=== PATIENT | male | born 1985 | race African-American/Black ===

== ENCOUNTER 2016-08-02 03:28 | Emergency (ER) | payer OTHER ==
[2016-08-02 04:38] LABS: BASO # 0.1 K/mm3 (0.0-0.2); BASO % 1.8 % (0.0-1.0); EOS # 0.1 K/mm3 (0.0-0.50); EOS % 1.4 % (0.0-3.0); LARGE UNSTAINED CELL # 0.1 K/mm3 (0.0-0.4); LARGE UNSTAINED CELL % 3.6 % (0.0-4.0); LYMPH # 1.4 K/mm3 (1.5-6.5); LYMPH % 32.1 % (24.0-44.0); MEAN CORPUSCULAR HEMOGLOBIN 32.2 pg (27.0-33.0); MEAN CORPUSCULAR HGB CONC 33.2 g/dl (32.0-36.5); MONO # 0.3 K/mm3 (0.0-0.8); MONO % 6.8 % (0.0-5.0); NEUTROPHILS # 2.2 K/mm3 (1.8-7.7); NEUTROPHILS % 54.3 % (36.0-66.0); PLATELET COUNT, AUTOMATED 212 k/mm3 (150-450); RED CELL DISTRIBUTION WIDTH 12.9 % (11.5-14.5)
[2016-08-02 04:50] LABS: ALBUMIN 3.7 GM/DL (3.2-5.2); ALKALINE PHOSPHATASE 83 U/L (45-117); ALT/SGPT 24 U/L (12-78); AMYLASE 93 U/L (25-115); ANION GAP 8 MEQ/L (8-16); AST/SGOT 8 U/L (15-37); BILIRUBIN,DIRECT 0.1 MG/DL (0.0-0.2); BILIRUBIN,TOTAL 0.6 MG/DL (0.2-1.0); BLOOD UREA NITROGEN 7 MG/DL (7-18); CARBON DIOXIDE LEVEL 30 MEQ/L (21-32); CHLORIDE LEVEL 105 MEQ/L (98-107); CREATININE FOR GFR 0.86 MG/DL (0.70-1.30); GLOMERULAR FILTRATION RATE > 60.0 (>60); GLUCOSE, FASTING 89 MG/DL (70-105); POTASSIUM SERUM 3.5 MEQ/L (3.5-5.1); SODIUM LEVEL 143 MEQ/L (136-145); TOTAL PROTEIN 7.4 GM/DL (6.4-8.2)
--- NOTE | 2016-08-02 06:27 | EDDOCDS ---
Physician Documentation [facility] Name: Regis Frank Age: 31 yrs Sex: Male : 1985 Arrival Date: 08/02/2016 Time: 03:28 Bed 8 Private MD: Disposition: 08/02/16 06:17 Discharged to Home/Self Care. Impression: Left sided colitis with rectal bleeding. - Condition is Stable. - Medication Reconciliation, Local Pharmacy Hours form. - Follow up: Dusty Thrasher; When: Call to arrange an appointment; Reason: Recheck today's complaints. - Problem is an ongoing problem. - Symptoms have improved. Historical: - Allergies: No known drug Allergies; - Home Meds: 1. none - PMHx: Seasonal Allergies; - PSHx: Tonsillectomy; - Social history: Smoking status: Patient states was never smoker of tobacco. No barriers to communication noted, The patient speaks fluent Nepali, Speaks appropriately for age. - Family history: Not pertinent. - : The pt / caregiver states he / she is not on anticoagulants. Home medication list is obtained from the patient. - Exposure Risk Screening:: None identified. Vital Signs: 08/02 03:37 BP 123 / 75; Pulse 51; Resp 16; Temp 98.3(TE); Pulse Ox 97% on R/A; Weight 79.38 kg / cz 175 lbs; Height 6 ft. 1 in. (185.42 cm); 06:20 BP 119 / 67; Pulse 55; Resp 18; Temp 99.3(TE); Pulse Ox 99% on R/A; Pain 0/10; dannielle 03:37 Body Mass Index 23.09 (79.38 kg, 185.42 cm) cz MDM: 04:02 Undress patient appropriately for examination ordered. jul 04:02 IV Saline Lock ordered. jul 04:03 Amylase Ordered. EDMS 04:03 Basic Metabolic Profile Ordered. EDMS 04:03 CBC with Diff Ordered. EDMS 04:03 Lipase Ordered. EDMS 04:03 Liver Profile Ordered. EDMS 04:03 Type & Screen Ordered. EDMS 04:03 NOTHING BY MOUTH+DIET ordered. EDMS 06:11 CBC with Diff Reviewed. cs11 06:11 Liver Profile Reviewed. cs11 06:11 Amylase Reviewed. cs11 06:11 Basic Metabolic Profile Reviewed. cs11 06:11 Lipase Reviewed. cs11 06:11 Type & Screen Reviewed. cs11 Signatures: Dispatcher [employer] Jaylin Wiggins RN Gilbert Ochoa RN Noam Gomes DO DO [facility] Rosetta CarrascoRN RN ko2 MTDD
--- NOTE | 2016-08-02 06:27 | EDDOCDS ---
Nurse's Notes [facility] Name: Regis Frank Age: 31 yrs Sex: Male : 1985 Arrival Date: 08/02/2016 Time: 03:28 Bed 8 Private MD: Diagnosis: Left sided colitis with rectal bleeding Presentation: 08/02 03:35 Presenting complaint: Patient states: had a bowel movement last night around 1900 and cz passed blood with movement turning bowl water red pt denies history of hemorrhoids.pt states was not a constipated stool. Adult Sepsis Screening: The patient does not have new or worsening altered mentation. Patient's respiratory rate is less than 22. Systolic blood pressure is greater than 100. Patient has a qSOFA score of 0- Negative Sepsis Screen. Suicide/Homicide risk assessment- the patient denies having any suicidal and/or homicidal ideations and does not present with any other emotional, behavioral or mental health complaints. 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 Transition of care: patient was not received from another setting of care. 03:35 Acuity: DAVID Level 3 cz 03:35 Method Of Arrival: Walkin/Carried/Asstd cz Triage Assessment: 03:37 General: Appears in no apparent distress. Pain: Denies pain. HIV screening NA for this cz visit Offered previously. Historical: - Allergies: No known drug Allergies; - Home Meds: 1. none - PMHx: Seasonal Allergies; - PSHx: Tonsillectomy; - Social history: Smoking status: Patient states was never smoker of tobacco. No barriers to communication noted, The patient speaks fluent Moroccan, Speaks appropriately for age. - Family history: Not pertinent. - : The pt / caregiver states he / she is not on anticoagulants. Home medication list is obtained from the patient. - Exposure Risk Screening:: None identified. Screenin:15 Screening information is obtained from the patient. Fall risk: No risks identified. ko2 Assistance ADL's: requires no assistance with activities of daily living. Abuse/DV Screen: The patient / caregiver reports he/she is: not in a situation that causes fear, pain or injury. Nutritional screening: No deficits noted. Advance Directives: Currently, there is no health care proxy. There is no active DNR order. There is no living will. There is no Power of Shop Laborer. home support is adequate. Assessment: 03:45 General: Appears in no apparent distress, Behavior is appropriate for age, cooperative. ko2 Pain: Denies pain. Neurological: Level of Consciousness is awake, alert. Respiratory: Airway is patent Respiratory effort is even, unlabored. GI: Abdomen is non- distended Reports bloody stools only when having a bowel movement. Derm: Skin is normal. 05:00 General: Appears in no apparent distress, Behavior is appropriate for age, cooperative. ko2 Pain: Denies pain. Neurological: Level of Consciousness is awake, alert. Respiratory: Airway is patent Respiratory effort is even, unlabored. Derm: Skin is normal. 06:16 General: Appears in no apparent distress, Behavior is appropriate for age, cooperative. ko2 Pain: Denies pain. Neurological: Level of Consciousness is awake, alert. Respiratory: Airway is patent Respiratory effort is even, unlabored. Derm: Skin is normal. Vital Signs: 03:37 BP 123 / 75; Pulse 51; Resp 16; Temp 98.3(TE); Pulse Ox 97% on R/A; Weight 79.38 kg; cz Height 6 ft. 1 in. (185.42 cm); 06:20 BP 119 / 67; Pulse 55; Resp 18; Temp 99.3(TE); Pulse Ox 99% on R/A; Pain 0/10; dannielle 03:37 Body Mass Index 23.09 (79.38 kg, 185.42 cm) Vitals: 03:37 Log In Time: August 02, 2016 at 03:28. ED Course: 03:29 Patient visited by Tiffani Storey. [facility] 03:29 Patient moved to Waiting [facility] 03:31 Patient moved to Triage 1 cz 03:36 Triage Initiated cz 03:38 Rosetta Carrasco,RN is Primary Nurse. cz 03:38 Patient moved to 8 cz 04:29 Patient visited by Rosetta Carrasco,ALFONSO. ko2 04:29 Inserted saline lock: 20 gauge in right antecubital area and blood collected. The ko2 patient tolerated the procedure well. 04:30 The patient / caregiver is instructed regarding the plan of care and ED course. ko2 04:30 Amylase Sent. ko2 04:30 Basic Metabolic Profile Sent. ko2 04:30 CBC with Diff Sent. ko2 04:30 Lipase Sent. ko2 04:30 Liver Profile Sent. ko2 04:30 Type & Screen Sent. ko2 05:22 Patient visited by Rosetta Carrasco RN. ko2 05:55 Noam Granados DO is Attending Physician. cs11 05:55 Patient visited by Noam Granados DO. cs11 06:14 Dusty Thrasher is Referral Physician. cs11 06:20 Patient visited by Ladonna Bertrand PCA. dannielle 06:24 Discontinued lock intact, bleeding controlled, pressure dressing applied, No ko2 redness/swelling at site. No procedures done that require assistance. Order Results: Lab Order: Amylase; SPEC'M 08/02/16 04:27 Test: AMYLASE; Value: 93; Range: 25-115; Units: U/L; Status: F Lab Order: Basic Metabolic Profile; SPEC'M 08/02/16 04:27 Test: GLUCOSE, FASTING; Value: 89; Range: 70-105; Units: MG/DL; Status: F Test: BLOOD UREA NITROGEN; Value: 7; Range: 7-18; Units: MG/DL; Status: F Test: CREATININE FOR GFR; Value: 0.86; Range: 0.70-1.30; Units: MG/DL; Status: F Test: GLOMERULAR FILTRATION RATE; Value: > 60.0; Range: >60; Status: F Test: SODIUM LEVEL; Value: 143; Range: 136-145; Units: MEQ/L; Status: F Test: POTASSIUM SERUM; Value: 3.5; Range: 3.5-5.1; Units: MEQ/L; Status: F Test: CHLORIDE LEVEL; Value: 105; Range: 98-107; Units: MEQ/L; Status: F Test: CARBON DIOXIDE LEVEL; Value: 30; Range: 21-32; Units: MEQ/L; Status: F Test: ANION GAP; Value: 8; Range: 8-16; Units: MEQ/L; Status: F Test: CALCIUM LEVEL; Value: 9.0; Range: 8.5-10.1; Units: MG/DL; Status: F Test Note: ; Units are mL/min/1.73 m2 Chronic Kidney Disease Staging per NKF: Stage I & II GFR >=60 Normal to Mildly Decreased Stage III GFR 30-59 Moderately Decreased Stage IV GFR 15-29 Severely Decreased Stage V GFR <15 Very Little GFR Left 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 Lab Order: CBC with Diff; SPEC'M 08/02/16 04:27 Test: WHITE BLOOD COUNT; Value: 4.0; Range: 4.0-10.0; Units: K/mm3; Status: F Test: RED BLOOD COUNT; Value: 4.93; Range: 4.30-6.10; Units: M/mm3; Status: F Test: HEMOGLOBIN; Value: 15.9; Range: 14.0-18.0; Units: g/dl; Status: F Test: HEMATOCRIT; Value: 47.8; Range: 42.0-52.0; Units: %; Status: F Test: MEAN CORPUSCULAR VOLUME; Value: 97.0; Range: 80.0-96.0; Abnormal: Above high normal; Units: fl; Status: F Test: MEAN CORPUSCULAR HEMOGLOBIN; Value: 32.2; Range: 27.0-33.0; Units: pg; Status: F Test: MEAN CORPUSCULAR HGB CONC; Value: 33.2; Range: 32.0-36.5; Units: g/dl; Status: F Test: RED CELL DISTRIBUTION WIDTH; Value: 12.9; Range: 11.5-14.5; Units: %; Status: F Test: PLATELET COUNT, AUTOMATED; Value: 212; Range: 150-450; Units: k/mm3; Status: F Test: NEUTROPHILS %; Value: 54.3; Range: 36.0-66.0; Units: %; Status: F Test: LYMPH %; Value: 32.1; Range: 24.0-44.0; Units: %; Status: F Test: MONO %; Value: 6.8; Range: 0.0-5.0; Abnormal: Above high normal; Units: %; Status: F Test: EOS %; Value: 1.4; Range: 0.0-3.0; Units: %; Status: F Test: BASO %; Value: 1.8; Range: 0.0-1.0; Abnormal: Above high normal; Units: %; Status: F Test: LARGE UNSTAINED CELL %; Value: 3.6; Range: 0.0-4.0; Units: %; Status: F Test: NEUTROPHILS #; Value: 2.2; Range: 1.8-7.7; Units: K/mm3; Status: F Test: LYMPH #; Value: 1.4; Range: 1.5-6.5; Abnormal: Below low normal; Units: K/mm3; Status: F Test: MONO #; Value: 0.3; Range: 0.0-0.8; Units: K/mm3; Status: F Test: EOS #; Value: 0.1; Range: 0.0-0.50; Units: K/mm3; Status: F Test: BASO #; Value: 0.1; Range: 0.0-0.2; Units: K/mm3; Status: F Test: LARGE UNSTAINED CELL #; Value: 0.1; Range: 0.0-0.4; Units: K/mm3; Status: F Lab Order: Lipase; [facility] 08/02/16 04:27 Test: LIPASE; Value: 85; Range: 73-393; Units: U/L; Status: F Lab Order: Liver Profile; [facility] 08/02/16 04:27 Test: AST/SGOT; Value: 8; Range: 15-37; Abnormal: Below low normal; Units: U/L; Status: F Test: ALT/SGPT; Value: 24; Range: 12-78; Units: U/L; Status: F Test: ALKALINE PHOSPHATASE; Value: 83; Range: 45-117; Units: U/L; Status: F Test: BILIRUBIN,TOTAL; Value: 0.6; Range: 0.2-1.0; Units: MG/DL; Status: F Test: BILIRUBIN,DIRECT; Value: 0.1; Range: 0.0-0.2; Units: MG/DL; Status: F Test: TOTAL PROTEIN; Value: 7.4; Range: 6.4-8.2; Units: GM/DL; Status: F Test: ALBUMIN; Value: 3.7; Range: 3.2-5.2; Units: GM/DL; Status: F Test: ALBUMIN/GLOBULIN RATIO; Value: 1.00; Range: 1.00-1.93; Status: F Lab Order: Type & Screen; [facility] 08/02/16 04:27 Test: BLOOD TYPE; Value: O POS; Status: F Test: AB SCREEN (INDIRECT MARY)GEL; Value: NEGATIVE; Status: F Outcome: 06:17 Discharge ordered by Provider. cs11 06:24 Discharge Assessment: Patient awake, alert and oriented x 3. No cognitive and/or ko2 functional deficits noted. Patient verbalized understanding of disposition instructions. patient administered narcotics - no. The following High Risk Discharge criteria are identified: None. Discharged to home ambulatory. Condition: stable. Discharge instructions given to patient, Instructed on discharge instructions, follow up and referral plans. Demonstrated understanding of instructions, Pt was receptive of discharge instructions/ teaching. No special radiology studies were completed. Property sent home with patient. 06:25 Patient left the ED. ko2 Signatures: Gilbert Valdivia, RN RN Ladonna Gordon, Noam Colunga DO DO cs11 Rosetta Carrasco RN RN ko2 Tiffani Storey MTDD
--- NOTE | 2016-08-04 07:27 | EDDOCDS ---
Physician Documentation [facility] Name: Regis Frank Age: 31 yrs Sex: Male : 1985 Arrival Date: 08/02/2016 Time: 03:28 Bed 8 Private MD: Disposition: 08/02/16 06:17 Discharged to Home/Self Care. Impression: Left sided colitis with rectal bleeding. - Condition is Stable. - Medication Reconciliation, Local Pharmacy Hours form. - Follow up: Dusty Thrasher; When: Call to arrange an appointment; Reason: Recheck today's complaints. - Problem is an ongoing problem. - Symptoms have improved. Historical: - Allergies: No known drug Allergies; - Home Meds: 1. none - PMHx: Seasonal Allergies; - PSHx: Tonsillectomy; - Social history: Smoking status: Patient states was never smoker of tobacco. No barriers to communication noted, The patient speaks fluent Arabic, Speaks appropriately for age. - Family history: Not pertinent. - : The pt / caregiver states he / she is not on anticoagulants. Home medication list is obtained from the patient. - Exposure Risk Screening:: None identified. Vital Signs: 08/02 03:37 BP 123 / 75; Pulse 51; Resp 16; Temp 98.3(TE); Pulse Ox 97% on R/A; Weight 79.38 kg / cz 175 lbs; Height 6 ft. 1 in. (185.42 cm); 06:20 BP 119 / 67; Pulse 55; Resp 18; Temp 99.3(TE); Pulse Ox 99% on R/A; Pain 0/10; dannielle 03:37 Body Mass Index 23.09 (79.38 kg, 185.42 cm) cz MDM: 04:02 Undress patient appropriately for examination ordered. jul 04:02 IV Saline Lock ordered. jul 04:03 Amylase Ordered. EDMS 04:03 Basic Metabolic Profile Ordered. EDMS 04:03 CBC with Diff Ordered. EDMS 04:03 Lipase Ordered. EDMS 04:03 Liver Profile Ordered. EDMS 04:03 Type & Screen Ordered. EDMS 04:03 NOTHING BY MOUTH+DIET ordered. EDMS 06:11 CBC with Diff Reviewed. cs11 06:11 Liver Profile Reviewed. cs11 06:11 Amylase Reviewed. cs11 06:11 Basic Metabolic Profile Reviewed. cs11 06:11 Lipase Reviewed. cs11 06:11 Type & Screen Reviewed. [facility] 06:39 [facility] Payment Agreement was scanned into [employer] and attached to record. [facility] :39 Financial registration complete. [facility] :02 T-Sheet-- Draft Copy was scanned into [employer] and attached to record. klr Signatures: Dispatcher [employer] Jaylin Wiggins RN RN jan Zecher, Calvin, RN RN cz Schiff, Craig, DO DO [facility] Rosetta Carrasco RN RN ko2 Beck, Gabriela Addie Goodson The chart was reviewed and I authenticate all verbal orders and agree with the evaluation and treatment provided.Attachments: 06:39 [facility] Payment Agreement [facility] :02 T-Sheet-- Draft Copy klr Chart Complete MTDD
--- NOTE | 2016-08-04 07:27 | EDDOCDS ---
Physician Documentation [facility] Name: Regis Frank Age: 31 yrs Sex: Male : 1985 Arrival Date: 08/02/2016 Time: 03:28 Bed 8 Private MD: Disposition: 08/02/16 06:17 Discharged to Home/Self Care. Impression: Left sided colitis with rectal bleeding. - Condition is Stable. - Medication Reconciliation, Local Pharmacy Hours form. - Follow up: Dusty Thrasher; When: Call to arrange an appointment; Reason: Recheck today's complaints. - Problem is an ongoing problem. - Symptoms have improved. Historical: - Allergies: No known drug Allergies; - Home Meds: 1. none - PMHx: Seasonal Allergies; - PSHx: Tonsillectomy; - Social history: Smoking status: Patient states was never smoker of tobacco. No barriers to communication noted, The patient speaks fluent Croatian, Speaks appropriately for age. - Family history: Not pertinent. - : The pt / caregiver states he / she is not on anticoagulants. Home medication list is obtained from the patient. - Exposure Risk Screening:: None identified. Vital Signs: 08/02 03:37 BP 123 / 75; Pulse 51; Resp 16; Temp 98.3(TE); Pulse Ox 97% on R/A; Weight 79.38 kg / cz 175 lbs; Height 6 ft. 1 in. (185.42 cm); 06:20 BP 119 / 67; Pulse 55; Resp 18; Temp 99.3(TE); Pulse Ox 99% on R/A; Pain 0/10; dannielle 03:37 Body Mass Index 23.09 (79.38 kg, 185.42 cm) cz MDM: 04:02 Undress patient appropriately for examination ordered. jul 04:02 IV Saline Lock ordered. jul 04:03 Amylase Ordered. EDMS 04:03 Basic Metabolic Profile Ordered. EDMS 04:03 CBC with Diff Ordered. EDMS 04:03 Lipase Ordered. EDMS 04:03 Liver Profile Ordered. EDMS 04:03 Type & Screen Ordered. EDMS 04:03 NOTHING BY MOUTH+DIET ordered. EDMS 06:11 CBC with Diff Reviewed. cs11 06:11 Liver Profile Reviewed. cs11 06:11 Amylase Reviewed. cs11 06:11 Basic Metabolic Profile Reviewed. cs11 06:11 Lipase Reviewed. cs11 06:11 Type & Screen Reviewed. [facility] 06:39 [facility] Payment Agreement was scanned into [employer] and attached to record. [facility] :39 Financial registration complete. [facility] :02 T-Sheet-- Draft Copy was scanned into [employer] and attached to record. klr Signatures: Dispatcher [employer] Jaylin Wiggins RN RN jan Zecher, Calvin, RN RN cz Schiff, Craig, DO DO [facility] Rosetta Carrasco RN RN ko2 Beck, Gabriela Addie Goodson The chart was reviewed and I authenticate all verbal orders and agree with the evaluation and treatment provided.Attachments: 06:39 [facility] Payment Agreement [facility] :02 T-Sheet-- Draft Copy klr Chart Complete MTDD
--- NOTE | 2016-08-04 07:27 | EDDOCDS ---
Nurse's Notes [facility] Name: Regis Frank Age: 31 yrs Sex: Male : 1985 Arrival Date: 08/02/2016 Time: 03:28 Bed 8 Private MD: Diagnosis: Left sided colitis with rectal bleeding Presentation: 08/02 03:35 Presenting complaint: Patient states: had a bowel movement last night around 1900 and cz passed blood with movement turning bowl water red pt denies history of hemorrhoids.pt states was not a constipated stool. Adult Sepsis Screening: The patient does not have new or worsening altered mentation. Patient's respiratory rate is less than 22. Systolic blood pressure is greater than 100. Patient has a qSOFA score of 0- Negative Sepsis Screen. Suicide/Homicide risk assessment- the patient denies having any suicidal and/or homicidal ideations and does not present with any other emotional, behavioral or mental health complaints. 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 Transition of care: patient was not received from another setting of care. 03:35 Acuity: DAVID Level 3 cz 03:35 Method Of Arrival: Walkin/Carried/Asstd cz Triage Assessment: 03:37 General: Appears in no apparent distress. Pain: Denies pain. HIV screening NA for this cz visit Offered previously. Historical: - Allergies: No known drug Allergies; - Home Meds: 1. none - PMHx: Seasonal Allergies; - PSHx: Tonsillectomy; - Social history: Smoking status: Patient states was never smoker of tobacco. No barriers to communication noted, The patient speaks fluent Solomon Islander, Speaks appropriately for age. - Family history: Not pertinent. - : The pt / caregiver states he / she is not on anticoagulants. Home medication list is obtained from the patient. - Exposure Risk Screening:: None identified. Screenin:15 Screening information is obtained from the patient. Fall risk: No risks identified. ko2 Assistance ADL's: requires no assistance with activities of daily living. Abuse/DV Screen: The patient / caregiver reports he/she is: not in a situation that causes fear, pain or injury. Nutritional screening: No deficits noted. Advance Directives: Currently, there is no health care proxy. There is no active DNR order. There is no living will. There is no Power of Necktie Stitcher. home support is adequate. Assessment: 03:45 General: Appears in no apparent distress, Behavior is appropriate for age, cooperative. ko2 Pain: Denies pain. Neurological: Level of Consciousness is awake, alert. Respiratory: Airway is patent Respiratory effort is even, unlabored. GI: Abdomen is non- distended Reports bloody stools only when having a bowel movement. Derm: Skin is normal. 05:00 General: Appears in no apparent distress, Behavior is appropriate for age, cooperative. ko2 Pain: Denies pain. Neurological: Level of Consciousness is awake, alert. Respiratory: Airway is patent Respiratory effort is even, unlabored. Derm: Skin is normal. 06:16 General: Appears in no apparent distress, Behavior is appropriate for age, cooperative. ko2 Pain: Denies pain. Neurological: Level of Consciousness is awake, alert. Respiratory: Airway is patent Respiratory effort is even, unlabored. Derm: Skin is normal. Vital Signs: 03:37 BP 123 / 75; Pulse 51; Resp 16; Temp 98.3(TE); Pulse Ox 97% on R/A; Weight 79.38 kg; cz Height 6 ft. 1 in. (185.42 cm); 06:20 BP 119 / 67; Pulse 55; Resp 18; Temp 99.3(TE); Pulse Ox 99% on R/A; Pain 0/10; dannielle 03:37 Body Mass Index 23.09 (79.38 kg, 185.42 cm) Vitals: 03:37 Log In Time: August 02, 2016 at 03:28. ED Course: 03:29 Patient visited by Tiffani Storey. [facility] [place] 03:29 Patient moved to Waiting [facility] [place] 03:31 Patient moved to Triage 1 cz 03:36 Triage Initiated cz 03:38 Rosetta Carrasco,RN is Primary Nurse. cz 03:38 Patient moved to 8 cz 04:29 Patient visited by Rosetta Carrasco,ALFONSO. ko2 04:29 Inserted saline lock: 20 gauge in right antecubital area and blood collected. The ko2 patient tolerated the procedure well. 04:30 The patient / caregiver is instructed regarding the plan of care and ED course. ko2 04:30 Amylase Sent. ko2 04:30 Basic Metabolic Profile Sent. ko2 04:30 CBC with Diff Sent. ko2 04:30 Lipase Sent. ko2 04:30 Liver Profile Sent. ko2 04:30 Type & Screen Sent. ko2 05:22 Patient visited by Rosetta Carrasco RN. ko2 05:55 Noam Granados DO is Attending Physician. cs11 05:55 Patient visited by Noam Granados DO. cs11 06:14 Dusty Thrasher is Referral Physician. cs11 06:20 Patient visited by Ladonna Bertrand PCA. dannielle 06:24 Discontinued lock intact, bleeding controlled, pressure dressing applied, No ko2 redness/swelling at site. No procedures done that require assistance. 06:39 [facility] Payment Agreement was scanned into [employer] and attached to record. gjb 07:47 Patient name changed from Regis\S\Dusty\S\Zac\S\ to Regis\S\ \S\Zac. EDMS 20:02 T-Sheet-- Draft Copy was scanned into [employer] and attached to record. klr Order Results: Lab Order: Amylase; SPEC'M 08/02/16 04:27 Test: AMYLASE; Value: 93; Range: 25-115; Units: U/L; Status: F Lab Order: Basic Metabolic Profile; SPEC'M 08/02/16 04:27 Test: GLUCOSE, FASTING; Value: 89; Range: 70-105; Units: MG/DL; Status: F Test: BLOOD UREA NITROGEN; Value: 7; Range: 7-18; Units: MG/DL; Status: F Test: CREATININE FOR GFR; Value: 0.86; Range: 0.70-1.30; Units: MG/DL; Status: F Test: GLOMERULAR FILTRATION RATE; Value: > 60.0; Range: >60; Status: F Test: SODIUM LEVEL; Value: 143; Range: 136-145; Units: MEQ/L; Status: F Test: POTASSIUM SERUM; Value: 3.5; Range: 3.5-5.1; Units: MEQ/L; Status: F Test: CHLORIDE LEVEL; Value: 105; Range: 98-107; Units: MEQ/L; Status: F Test: CARBON DIOXIDE LEVEL; Value: 30; Range: 21-32; Units: MEQ/L; Status: F Test: ANION GAP; Value: 8; Range: 8-16; Units: MEQ/L; Status: F Test: CALCIUM LEVEL; Value: 9.0; Range: 8.5-10.1; Units: MG/DL; Status: F Test Note: ; Units are mL/min/1.73 m2 Chronic Kidney Disease Staging per NKF: Stage I & II GFR >=60 Normal to Mildly Decreased Stage III GFR 30-59 Moderately Decreased Stage IV GFR 15-29 Severely Decreased Stage V GFR <15 Very Little GFR Left ESRD GFR <15 on ORTHOPAEDIC SURGEON Lab Order: CBC with Diff; SPEC'M 08/02/16 04:27 Test: WHITE BLOOD COUNT; Value: 4.0; Range: 4.0-10.0; Units: K/mm3; Status: F Test: RED BLOOD COUNT; Value: 4.93; Range: 4.30-6.10; Units: M/mm3; Status: F Test: HEMOGLOBIN; Value: 15.9; Range: 14.0-18.0; Units: g/dl; Status: F Test: HEMATOCRIT; Value: 47.8; Range: 42.0-52.0; Units: %; Status: F Test: MEAN CORPUSCULAR VOLUME; Value: 97.0; Range: 80.0-96.0; Abnormal: Above high normal; Units: fl; Status: F Test: MEAN CORPUSCULAR HEMOGLOBIN; Value: 32.2; Range: 27.0-33.0; Units: pg; Status: F Test: MEAN CORPUSCULAR HGB CONC; Value: 33.2; Range: 32.0-36.5; Units: g/dl; Status: F Test: RED CELL DISTRIBUTION WIDTH; Value: 12.9; Range: 11.5-14.5; Units: %; Status: F Test: PLATELET COUNT, AUTOMATED; Value: 212; Range: 150-450; Units: k/mm3; Status: F Test: NEUTROPHILS %; Value: 54.3; Range: 36.0-66.0; Units: %; Status: F Test: LYMPH %; Value: 32.1; Range: 24.0-44.0; Units: %; Status: F Test: MONO %; Value: 6.8; Range: 0.0-5.0; Abnormal: Above high normal; Units: %; Status: F Test: EOS %; Value: 1.4; Range: 0.0-3.0; Units: %; Status: F Test: BASO %; Value: 1.8; Range: 0.0-1.0; Abnormal: Above high normal; Units: %; Status: F Test: LARGE UNSTAINED CELL %; Value: 3.6; Range: 0.0-4.0; Units: %; Status: F Test: NEUTROPHILS #; Value: 2.2; Range: 1.8-7.7; Units: K/mm3; Status: F Test: LYMPH #; Value: 1.4; Range: 1.5-6.5; Abnormal: Below low normal; Units: K/mm3; Status: F Test: MONO #; Value: 0.3; Range: 0.0-0.8; Units: K/mm3; Status: F Test: EOS #; Value: 0.1; Range: 0.0-0.50; Units: K/mm3; Status: F Test: BASO #; Value: 0.1; Range: 0.0-0.2; Units: K/mm3; Status: F Test: LARGE UNSTAINED CELL #; Value: 0.1; Range: 0.0-0.4; Units: K/mm3; Status: F Lab Order: Lipase; SPEC' 08/02/16 04:27 Test: LIPASE; Value: 85; Range: 73-393; Units: U/L; Status: F Lab Order: Liver Profile; SPEC' 08/02/16 04:27 Test: AST/SGOT; Value: 8; Range: 15-37; Abnormal: Below low normal; Units: U/L; Status: F Test: ALT/SGPT; Value: 24; Range: 12-78; Units: U/L; Status: F Test: ALKALINE PHOSPHATASE; Value: 83; Range: 45-117; Units: U/L; Status: F Test: BILIRUBIN,TOTAL; Value: 0.6; Range: 0.2-1.0; Units: MG/DL; Status: F Test: BILIRUBIN,DIRECT; Value: 0.1; Range: 0.0-0.2; Units: MG/DL; Status: F Test: TOTAL PROTEIN; Value: 7.4; Range: 6.4-8.2; Units: GM/DL; Status: F Test: ALBUMIN; Value: 3.7; Range: 3.2-5.2; Units: GM/DL; Status: F Test: ALBUMIN/GLOBULIN RATIO; Value: 1.00; Range: 1.00-1.93; Status: F Lab Order: Type & Screen; SPEC'M 08/02/16 04:27 Test: BLOOD TYPE; Value: O POS; Status: F Test: AB SCREEN (INDIRECT MARY)GEL; Value: NEGATIVE; Status: F Outcome: :17 Discharge ordered by Provider. 11 06:24 Discharge Assessment: Patient awake, alert and oriented x 3. No cognitive and/or ko2 functional deficits noted. Patient verbalized understanding of disposition instructions. patient administered narcotics - no. The following High Risk Discharge criteria are identified: None. Discharged to home ambulatory. Condition: stable. Discharge instructions given to patient, Instructed on discharge instructions, follow up and referral plans. Demonstrated understanding of instructions, Pt was receptive of discharge instructions/ teaching. No special radiology studies were completed. Property sent home with patient. 06:25 Patient left the ED. ko2 Signatures: Dispatcher [employer] EDGilbert Sifuentes, RN Ladonna Bui, Noam Colunga, DO DO cs11 Rosetta Carrasco RN RN ko2 Tiffani Storey Kathie klr Chart Complete MTDD
== END 2016-08-02 06:25 | disposition home or self-care (01) ==
LOC: M ED 03:28
DX: K62.5 Hemorrhage of anus and rectum (principal); J30.2 Other seasonal allergic rhinitis

== ENCOUNTER 2016-08-17 18:13 | Emergency (ER) | payer OTHER ==
[2016-08-17] MEDS ORDERED: traMADol 50 MG TAB As Ordered ONE (20:03)
[2016-08-17] MEDS ORDERED: ACETAMINOPHEN 325 MG TAB As Ordered ONE (20:09)
--- NOTE | 2016-08-17 21:37 | EDDOCDS ---
Nurse's Notes [facility] Name: Regis Frank Age: 31 yrs Sex: Male : 1985 Arrival Date: 08/17/2016 Time: 18:13 Bed TR5 Private MD: MDZia BENÍTEZ Diagnosis: Other internal derangements of right knee;Sprain of ankle-RIGHT Presentation: 08/17 18:16 Presenting complaint: Patient states: pt reports slipping on snowy steps while leaving ead work, incident occurred yesterday. pt c/o pain from right knee down to right ankle. Adult Sepsis Screening: The patient does not have new or worsening altered mentation. Patient's respiratory rate is less than 22. Systolic blood pressure is greater than 100. Patient has a qSOFA score of 0- Negative Sepsis Screen. Suicide/Homicide risk assessment- the patient denies having any suicidal and/or homicidal ideations and does not present with any other emotional, behavioral or mental health complaints. 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 Transition of care: patient was not received from another setting of care. 18:16 Acuity: DAVID Level 4 ead 18:16 Method Of Arrival: Walkin/Carried/Asstd ead Triage Assessment: 18:17 General: Appears in no apparent distress, comfortable, Behavior is appropriate for age, ead cooperative. Pain: Location: right leg Pain currently is 9 out of 10 on a pain scale. HIV screening NA for this visit Offered previously. Respiratory: Airway is patent Respiratory effort is even, unlabored. Musculoskeletal: Reports pain in right leg. Historical: - Allergies: no known allergies; - Home Meds: 1. none - PMHx: Seasonal Allergies; - PSHx: Tonsillectomy; - Social history: Smoking status: Patient uses tobacco products, current some day smoker. No barriers to communication noted, The patient speaks fluent German, Speaks appropriately for age. - Family history: Not pertinent. - : The pt / caregiver states he / she is not on anticoagulants. Home medication list is obtained from the patient. - Exposure Risk Screening:: None identified. Screenin:33 Screening information is obtained from the patient. Fall risk: At risk due to injury, kc3 The following interventions are performed due to a positive Fall Risk Screen: Fall Risk is added to Special Handling on the patient Summary Screen. A Fall Risk Bracelet was applied to the patient. Side Rails are placed in the up position. A Call Turcios is given with instruction to call for help when getting out of bed. Fall Alert bracelet is placed on the patient. Assistance ADL's: requires no assistance with activities of daily living. Abuse/DV Screen: The patient / caregiver reports he/she is: not in a situation that causes fear, pain or injury. Nutritional screening: No deficits noted. Advance Directives: Currently, there is no health care proxy. home support is adequate. Assessment: 20:00 General: Appears in no apparent distress, comfortable, Behavior is appropriate for age, kc3 cooperative. Pain: Location: right leg. Neurological: Level of Consciousness is awake, alert, obeys commands. Respiratory: Airway is patent Respiratory effort is even, unlabored. Derm: Skin is normal. 21:33 General: Appears in no apparent distress, comfortable, Behavior is appropriate for age, kc3 cooperative. Pain: Location: right leg. Neurological: Level of Consciousness is awake, alert, obeys commands. Respiratory: Respiratory effort is even, unlabored. Derm: Skin is normal. Vital Signs: 18:14 BP 115 / 79; Pulse 58; Resp 18; Temp 97.9(T); Pulse Ox 100% on R/A; Weight 81.65 kg; ct3 Height 6 ft. 1 in. (185.42 cm); Pain 9/10; 21:34 BP 124 / 89; Pulse 53; Resp 18; Temp 99.6(TE); Pulse Ox 100% on R/A; kc3 18:14 Body Mass Index 23.75 (81.65 kg, 185.42 cm) ct3 Vitals: 18:14 Log In Time: August 17, 2016 at 18:14. ct3 ED Course: 18:14 Patient visited by Bree Rivas PCA. ct3 18:14 [facility], Zia Scott is Private Physician. ct3 18:14 Patient moved to Waiting ct3 18:15 Patient moved to Pre RCE ct3 18:17 Triage Initiated ead 19:21 Patient moved to Triage 1 ar3 19:52 [facility] Freeman [facility]C [facility] ck7 19:52 Noam Granados DO is Attending Physician. ck7 19:52 Patient visited by Robson Freeman RPA-C. ck7 20:11 Patient moved to TR1 ar3 20:41 Patient visited by Robson Freeman RPA-C. ck7 21:11 Patient visited by Robson Freeman RPA-C. ck7 21:12 [facility], [place] is Referral Physician. ck7 21:13 Patient moved to PR1 / 25 lf1 21:28 Patient moved to TR5 kc3 21:33 No IV's were initiated during this patient's visit. No procedures done that require kc3 assistance. 21:35 The patient / caregiver is instructed regarding the plan of care and ED course. kc3 Administered Medications: 20:11 Drug: Acetaminophen 650 mg [acetaminophen 325 mg tablet (2 tabs)] Route: PO; kc3 21:29 Drug: traMADol 50 mg [tramadol 50 mg tablet (1 tabs)] Route: PO; kc3 21:36 Follow up: pt given medication to take at home per Robson Freeman PA-C kc3 Intake: Order Results: There are currently no results for this order. Outcome: 21:13 Discharge ordered by Provider. ck7 21:34 Discharge Assessment: Patient awake, alert and oriented x 3. No cognitive and/or kc3 functional deficits noted. Patient verbalized understanding of disposition instructions. patient administered narcotics - no. The following High Risk Discharge criteria are identified: None. Discharged to home ambulatory, with crutches. Condition: stable. Discharge instructions given to patient, Instructed on discharge instructions, follow up and referral plans. medication usage, Demonstrated understanding of instructions, crutch walking, medications, Pt was receptive of discharge instructions/ teaching. Prescriptions given X 2. No special radiology studies were completed. Property :Personal belongings accompany Pt. 21:36 Patient left the ED. kc3 Signatures: Ana LeesRN RN lf1 Marlin Paiz, CAREER TECHNICAL EDUCATION TEACHER CAREER TECHNICAL EDUCATION TEACHER ar3 Bree Rivas, CAREER TECHNICAL EDUCATION TEACHER CAREER TECHNICAL EDUCATION TEACHER ct3 Robson Freeman RPA-C RPA-CckLuiza KwongRN Kristy Williamson RN RN kc3 MTDD
--- NOTE | 2016-08-17 21:37 | EDDOCDS ---
Physician Documentation [facility] Name: Regis Frank Age: 31 yrs Sex: Male : 1985 Arrival Date: 08/17/2016 Time: 18:13 Bed TR5 Private MD: [facility] [place] Disposition: 08/17/16 21:13 Discharged to Home/Self Care. Impression: Other internal derangements of right knee, Sprain of ankle - RIGHT. - Condition is Stable. - Discharge Instructions: Ankle Sprain, Knee Pain. - Prescriptions for Ibuprofen 600 mg Oral Tablet - take 1 tablet by ORAL route every 6 hours As needed take with food; 30 tablet. Tramadol 50 mg Oral Tablet - take 1 tablet by ORAL route 4 times per day As needed MDD: 4 tabs; 10 tablet. - Medication Reconciliation, Local Pharmacy Hours form. - Follow up: [facility] [place]; When: Tomorrow; Reason: Recheck today's complaints, Continuance of care. - Problem is new. - Symptoms have improved. - Notes: USE MEDICATION, SPLINT AND CRUTCHES INSTRUCTED, FOLLOW UP WITH YOUR DOCTOR TOMORROW, RETURN TO THE ER IF THE SYMPTOMS WORSEN OR BECOME CONCERNING Historical: - Allergies: no known allergies; - Home Meds: 1. none - PMHx: Seasonal Allergies; - PSHx: Tonsillectomy; - Social history: Smoking status: Patient uses tobacco products, current some day smoker. No barriers to communication noted, The patient speaks fluent Polish, Speaks appropriately for age. - Family history: Not pertinent. - : The pt / caregiver states he / she is not on anticoagulants. Home medication list is obtained from the patient. - Exposure Risk Screening:: None identified. Vital Signs: 08/17 18:14 BP 115 / 79; Pulse 58; Resp 18; Temp 97.9(T); Pulse Ox 100% on R/A; Weight 81.65 kg / ct3 180.01 lbs; Height 6 ft. 1 in. (185.42 cm); Pain 9/10; 21:34 BP 124 / 89; Pulse 53; Resp 18; Temp 99.6(TE); Pulse Ox 100% on R/A; kc3 18:14 Body Mass Index 23.75 (81.65 kg, 185.42 cm) ct3 Procedures: 21:16 Fracture care/splinting: Splint applied to right knee and anterior aspect of right ck7 ankle using chet wrap, Air Cast, applied by nurse. Examined by me, post splint application: neurovascular intact, 2+ distal pulses palpable, brisk capillary refill noted, Patient tolerated well. MDM: 20:01 traMADol 50 mg PO once ordered. ck7 20:02 Foot, Complete Ordered. EDMS 20:03 Ankle, Complete Ordered. EDMS 20:03 Tibia/Fibula Ordered. EDMS 20:03 Knee, Complete Ordered. EDMS 20:09 Acetaminophen Tablet 650 mg PO once ordered. ck7 20:42 Financial registration complete. gjb 21:12 Chet Wrap ordered. ck7 21:12 Apply Air Cast to Patient. ordered. ck7 21:12 Crutches ordered. ck7 Administered Medications: 20:11 Drug: Acetaminophen 650 mg [acetaminophen 325 mg tablet (2 tabs)] Route: PO; kc3 21:29 Drug: traMADol 50 mg [tramadol 50 mg tablet (1 tabs)] Route: PO; kc3 21:36 Follow up: pt given medication to take at home per MATT Gardner Signatures: Dispatcher [employer] Robson Fletcher, THUC RPA-Cck7 Luiza LopezRN Kristy Williamson RN RN kc3 Beck, Gabriela gjb [id number]
--- NOTE | 2016-08-18 01:55 | REP ---
Clinical: Deformity and swelling . Technique: AP, lateral, bilateral oblique views. Findings: No acute fracture or dislocation. Skeletal structures and joint spaces are intact and normal. Ankle mortise appears stable. No subcutaneous emphysema or radiodense foreign body. Impression: Normal right ankle radiograph series. Signed by Yon Johnston MD 08/18/2016 01:46 A
--- NOTE | 2016-08-18 01:59 | REP ---
Clinical: Trauma. Technique: AP, lateral views of the right tibia / fibula. Findings: The osseous structures and joint spaces are intact and normal. There is no evidence for acute fracture or dislocation. Surrounding soft tissues are unremarkable. No subcutaneous emphysema or radiodense foreign body. Impression: Normal examination. No acute fracture or dislocation. Signed by Yon Johnston MD 08/18/2016 01:50 A
--- NOTE | 2016-08-18 02:00 | REP ---
Clinical: Trauma. Technique: AP, lateral, bilateral oblique and sunrise views right knee . Findings: The osseous structures and joint spaces are intact and normal. There is no evidence for acute fracture or dislocation. No joint effusion is appreciated. Surrounding soft tissues are unremarkable. No subcutaneous emphysema or radiodense foreign body. Impression: Normal examination. No acute fracture or dislocation. Signed by Yon Johnston MD 08/18/2016 01:51 A
--- NOTE | 2016-08-18 02:06 | REP ---
Clinical: Trauma. Technique: AP, lateral, bilateral oblique views right foot . Findings: The osseous structures and joint spaces are intact and normal. There is no evidence for acute fracture or dislocation. Surrounding soft tissues are unremarkable. No subcutaneous emphysema or radiodense foreign body. Impression: Normal examination. No acute fracture or dislocation. Signed by Yon Johnston MD 08/18/2016 01:58 A
--- NOTE | 2016-08-19 22:37 | EDDOCDS ---
Physician Documentation [facility] Name: Regis Frank Age: 31 yrs Sex: Male : 1985 Arrival Date: 08/17/2016 Time: 18:13 Bed TR5 Private MD: [facility] [place] Disposition: 08/17/16 21:13 Discharged to Home/Self Care. Impression: Other internal derangements of right knee, Sprain of ankle - RIGHT. - Condition is Stable. - Discharge Instructions: Ankle Sprain, Knee Pain. - Prescriptions for Ibuprofen 600 mg Oral Tablet - take 1 tablet by ORAL route every 6 hours As needed take with food; 30 tablet. Tramadol 50 mg Oral Tablet - take 1 tablet by ORAL route 4 times per day As needed MDD: 4 tabs; 10 tablet. - Medication Reconciliation, Local Pharmacy Hours form. - Follow up: [facility] [place]; When: Tomorrow; Reason: Recheck today's complaints, Continuance of care. - Problem is new. - Symptoms have improved. - Notes: USE MEDICATION, SPLINT AND CRUTCHES INSTRUCTED, FOLLOW UP WITH YOUR DOCTOR TOMORROW, RETURN TO THE ER IF THE SYMPTOMS WORSEN OR BECOME CONCERNING Historical: - Allergies: no known allergies; - Home Meds: 1. none - PMHx: Seasonal Allergies; - PSHx: Tonsillectomy; - Social history: Smoking status: Patient uses tobacco products, current some day smoker. No barriers to communication noted, The patient speaks fluent Yakut, Speaks appropriately for age. - Family history: Not pertinent. - : The pt / caregiver states he / she is not on anticoagulants. Home medication list is obtained from the patient. - Exposure Risk Screening:: None identified. Vital Signs: 08/17 18:14 BP 115 / 79; Pulse 58; Resp 18; Temp 97.9(T); Pulse Ox 100% on R/A; Weight 81.65 kg / ct3 180.01 lbs; Height 6 ft. 1 in. (185.42 cm); Pain 9/10; 21:34 BP 124 / 89; Pulse 53; Resp 18; Temp 99.6(TE); Pulse Ox 100% on R/A; kc3 18:14 Body Mass Index 23.75 (81.65 kg, 185.42 cm) ct3 Procedures: 21:16 Fracture care/splinting: Splint applied to right knee and anterior aspect of right ck7 ankle using chet wrap, Air Cast, applied by nurse. Examined by me, post splint application: neurovascular intact, 2+ distal pulses palpable, brisk capillary refill noted, Patient tolerated well. MDM: 20:01 traMADol 50 mg PO once ordered. ck7 20:02 Foot, Complete Ordered. EDMS 20:03 Ankle, Complete Ordered. EDMS 20:03 Tibia/Fibula Ordered. EDMS 20:03 Knee, Complete Ordered. EDMS 20:09 Acetaminophen Tablet 650 mg PO once ordered. ck7 20:42 Financial registration complete. gjb 21:12 Chet Wrap ordered. ck7 21:12 Apply Air Cast to Patient. ordered. ck7 21:12 Crutches ordered. ck7 21:46 [facility] Payment Agreement was scanned into [employer] and attached to record. b 08/18 11:14 T-Sheet-- Draft Copy was scanned into [employer] and attached to record. gb Administered Medications: 08/17 20:11 Drug: Acetaminophen 650 mg [acetaminophen 325 mg tablet (2 tabs)] Route: PO; kc3 21:29 Drug: traMADol 50 mg [tramadol 50 mg tablet (1 tabs)] Route: PO; kc3 21:36 Follow up: pt given medication to take at home per MATT Gardner Signatures: Dispatcher [employer] EDCO Fabiola Parish, Reg Reg Robson Mann RPA-C RPA-Cck7 Luiza Lopez RN RN ead Crane, Kelsi, RN RN kc3 Tiffani Storey The chart was reviewed and I authenticate all verbal orders and agree with the evaluation and treatment provided.Attachments: 21:46 [facility] Payment Agreement b 08/18 11:14 T-Sheet-- Draft Copy Chart Complete MTDD
--- NOTE | 2016-08-19 22:37 | EDDOCDS ---
Nurse's Notes [facility] Name: Regis Frank Age: 31 yrs Sex: Male : 1985 Arrival Date: 08/17/2016 Time: 18:13 Bed TR5 Private MD: WIZia BENÍTEZ Diagnosis: Other internal derangements of right knee;Sprain of ankle-RIGHT Presentation: 08/17 18:16 Presenting complaint: Patient states: pt reports slipping on snowy steps while leaving ead work, incident occurred yesterday. pt c/o pain from right knee down to right ankle. Adult Sepsis Screening: The patient does not have new or worsening altered mentation. Patient's respiratory rate is less than 22. Systolic blood pressure is greater than 100. Patient has a qSOFA score of 0- Negative Sepsis Screen. Suicide/Homicide risk assessment- the patient denies having any suicidal and/or homicidal ideations and does not present with any other emotional, behavioral or mental health complaints. 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 Transition of care: patient was not received from another setting of care. 18:16 Acuity: DAVID Level 4 ead 18:16 Method Of Arrival: Walkin/Carried/Asstd ead Triage Assessment: 18:17 General: Appears in no apparent distress, comfortable, Behavior is appropriate for age, ead cooperative. Pain: Location: right leg Pain currently is 9 out of 10 on a pain scale. HIV screening NA for this visit Offered previously. Respiratory: Airway is patent Respiratory effort is even, unlabored. Musculoskeletal: Reports pain in right leg. Historical: - Allergies: no known allergies; - Home Meds: 1. none - PMHx: Seasonal Allergies; - PSHx: Tonsillectomy; - Social history: Smoking status: Patient uses tobacco products, current some day smoker. No barriers to communication noted, The patient speaks fluent Danish, Speaks appropriately for age. - Family history: Not pertinent. - : The pt / caregiver states he / she is not on anticoagulants. Home medication list is obtained from the patient. - Exposure Risk Screening:: None identified. Screenin:33 Screening information is obtained from the patient. Fall risk: At risk due to injury, kc3 The following interventions are performed due to a positive Fall Risk Screen: Fall Risk is added to Special Handling on the patient Summary Screen. A Fall Risk Bracelet was applied to the patient. Side Rails are placed in the up position. A Call Turcios is given with instruction to call for help when getting out of bed. Fall Alert bracelet is placed on the patient. Assistance ADL's: requires no assistance with activities of daily living. Abuse/DV Screen: The patient / caregiver reports he/she is: not in a situation that causes fear, pain or injury. Nutritional screening: No deficits noted. Advance Directives: Currently, there is no health care proxy. home support is adequate. Assessment: 20:00 General: Appears in no apparent distress, comfortable, Behavior is appropriate for age, kc3 cooperative. Pain: Location: right leg. Neurological: Level of Consciousness is awake, alert, obeys commands. Respiratory: Airway is patent Respiratory effort is even, unlabored. Derm: Skin is normal. 21:33 General: Appears in no apparent distress, comfortable, Behavior is appropriate for age, kc3 cooperative. Pain: Location: right leg. Neurological: Level of Consciousness is awake, alert, obeys commands. Respiratory: Respiratory effort is even, unlabored. Derm: Skin is normal. Vital Signs: 18:14 BP 115 / 79; Pulse 58; Resp 18; Temp 97.9(T); Pulse Ox 100% on R/A; Weight 81.65 kg; ct3 Height 6 ft. 1 in. (185.42 cm); Pain 9/10; 21:34 BP 124 / 89; Pulse 53; Resp 18; Temp 99.6(TE); Pulse Ox 100% on R/A; kc3 18:14 Body Mass Index 23.75 (81.65 kg, 185.42 cm) ct3 Vitals: 18:14 Log In Time: August 17, 2016 at 18:14. ct3 ED Course: 18:14 Patient visited by Bree Rivas PCA. ct3 18:14 [facility], Zia Scott is Private Physician. ct3 18:14 Patient moved to Waiting ct3 18:15 Patient moved to Pre RCE ct3 18:17 Triage Initiated ead 19:21 Patient moved to Triage 1 ar3 19:52 [facility] ck7 19:52 Noam Granados DO is Attending Physician. ck7 19:52 Patient visited by Robson Freeman RPA-C. ck7 20:11 Patient moved to TR1 ar3 20:41 Patient visited by Robson Freeman RPA-C. ck7 21:11 Patient visited by Robson Freeman RPA-C. ck7 21:12 [facility], Zia Scott is Referral Physician. ck7 21:13 Patient moved to PR1 / 25 lf1 21:28 Patient moved to TR5 kc3 21:33 No IV's were initiated during this patient's visit. No procedures done that require kc3 assistance. 21:35 The patient / caregiver is instructed regarding the plan of care and ED course. kc3 21:45 Patient name changed from Regis\S\\S\Zac\S\ to Regis\S\ \S\Zac. EDMS 21:46 [facility] Payment Agreement was scanned into K[employer] and attached to record. gjb 08/18 02:05 Ankle, Complete Returned. EDMS 02:05 Tibia/Fibula Returned. EDMS 02:05 Knee, Complete Returned. EDMS 02:41 Foot, Complete Returned. EDMS 11:14 T-Sheet-- Draft Copy was scanned into Kudo and attached to record. gb Administered Medications: 08/17 20:11 Drug: Acetaminophen 650 mg [acetaminophen 325 mg tablet (2 tabs)] Route: PO; kc3 21:29 Drug: traMADol 50 mg [tramadol 50 mg tablet (1 tabs)] Route: PO; kc3 21:36 Follow up: pt given medication to take at home per Robson Freeman PA-C kc3 Intake: Order Results: Radiology Order: Foot, Complete Test: Foot, Complete REASON FOR EXAMINATION: Deformity/Swelling; Clinical: Trauma.; ; Technique: AP, lateral, bilateral oblique views right foot .; ; Findings: The osseous structures and joint spaces are intact and normal. There; is no evidence for acute fracture or dislocation. Surrounding soft tissues are; unremarkable. No subcutaneous emphysema or radiodense foreign body.; ; Impression:; Normal examination. No acute fracture or dislocation.; ; ; Signed by; Yon Johnston MD 08/18/2016 01:58 A; Radiology Order: Ankle, Complete Test: Ankle, Complete REASON FOR EXAMINATION: Deformity/Swelling; Clinical: Deformity and swelling .; ; Technique: AP, lateral, bilateral oblique views.; ; Findings: No acute fracture or dislocation. Skeletal structures and joint; spaces are intact and normal. Ankle mortise appears stable. No subcutaneous; emphysema or radiodense foreign body.; ; Impression:; Normal right ankle radiograph series.; ; ; Signed by; Yon Johnston MD 08/18/2016 01:46 A; Radiology Order: Tibia/Fibula Test: Tibia/Fibula REASON FOR EXAMINATION: Deformity/Swelling; Clinical: Trauma.; ; Technique: AP, lateral views of the right tibia / fibula.; ; Findings: The osseous structures and joint spaces are intact and normal. There; is no evidence for acute fracture or dislocation. Surrounding soft tissues are; unremarkable. No subcutaneous emphysema or radiodense foreign body.; ; Impression:; Normal examination. No acute fracture or dislocation.; ; ; Signed by; Yon Johnston MD 08/18/2016 01:50 A; Radiology Order: Knee, Complete Test: Knee, Complete REASON FOR EXAMINATION: Deformity/Swelling; Clinical: Trauma.; ; Technique: AP, lateral, bilateral oblique and sunrise views right knee .; ; Findings: The osseous structures and joint spaces are intact and normal. There; is no evidence for acute fracture or dislocation. No joint effusion is; appreciated. Surrounding soft tissues are unremarkable. No subcutaneous; emphysema or radiodense foreign body.; ; Impression:; Normal examination. No acute fracture or dislocation.; ; ; Signed by; Yon Johnston MD 08/18/2016 01:51 A; Outcome: 21:13 Discharge ordered by Provider. ck7 21:34 Discharge Assessment: Patient awake, alert and oriented x 3. No cognitive and/or kc3 functional deficits noted. Patient verbalized understanding of disposition instructions. patient administered narcotics - no. The following High Risk Discharge criteria are identified: None. Discharged to home ambulatory, with crutches. Condition: stable. Discharge instructions given to patient, Instructed on discharge instructions, follow up and referral plans. medication usage, Demonstrated understanding of instructions, crutch walking, medications, Pt was receptive of discharge instructions/ teaching. Prescriptions given X 2. No special radiology studies were completed. Property :Personal belongings accompany Pt. 21:36 Patient left the ED. kc3 Signatures: Dispatcher [employer] EDMS Fabiola Parish, Reg Reg Ana Majano,RN RN lf1 Marlin Paiz, CERTIFIED ENDOSCOPY TECHNICIAN CERTIFIED ENDOSCOPY TECHNICIAN ar3 Rob, Bree, CERTIFIED ENDOSCOPY TECHNICIAN CERTIFIED ENDOSCOPY TECHNICIAN ct3 Lydia, Robson, RPA-C RPA-Cck7 Luiza Lopez,RN RN dinorad Kristy Allen,RN RN kc3 Tiffani Storey Chart Complete MTDD
--- NOTE | 2016-08-19 22:37 | EDDOCDS ---
Physician Documentation [facility] Name: Regis Frank Age: 31 yrs Sex: Male : 1985 Arrival Date: 08/17/2016 Time: 18:13 Bed TR5 Private MD: [facility] Disposition: 08/17/16 21:13 Discharged to Home/Self Care. Impression: Other internal derangements of right knee, Sprain of ankle - RIGHT. - Condition is Stable. - Discharge Instructions: Ankle Sprain, Knee Pain. - Prescriptions for Ibuprofen 600 mg Oral Tablet - take 1 tablet by ORAL route every 6 hours As needed take with food; 30 tablet. Tramadol 50 mg Oral Tablet - take 1 tablet by ORAL route 4 times per day As needed MDD: 4 tabs; 10 tablet. - Medication Reconciliation, Local Pharmacy Hours form. - Follow up: [facility]; When: Tomorrow; Reason: Recheck today's complaints, Continuance of care. - Problem is new. - Symptoms have improved. - Notes: USE MEDICATION, SPLINT AND CRUTCHES INSTRUCTED, FOLLOW UP WITH YOUR DOCTOR TOMORROW, RETURN TO THE ER IF THE SYMPTOMS WORSEN OR BECOME CONCERNING Historical: - Allergies: no known allergies; - Home Meds: 1. none - PMHx: Seasonal Allergies; - PSHx: Tonsillectomy; - Social history: Smoking status: Patient uses tobacco products, current some day smoker. No barriers to communication noted, The patient speaks fluent Macedonian, Speaks appropriately for age. - Family history: Not pertinent. - : The pt / caregiver states he / she is not on anticoagulants. Home medication list is obtained from the patient. - Exposure Risk Screening:: None identified. Vital Signs: 08/17 18:14 BP 115 / 79; Pulse 58; Resp 18; Temp 97.9(T); Pulse Ox 100% on R/A; Weight 81.65 kg / ct3 180.01 lbs; Height 6 ft. 1 in. (185.42 cm); Pain 9/10; 21:34 BP 124 / 89; Pulse 53; Resp 18; Temp 99.6(TE); Pulse Ox 100% on R/A; kc3 18:14 Body Mass Index 23.75 (81.65 kg, 185.42 cm) ct3 Procedures: 21:16 Fracture care/splinting: Splint applied to right knee and anterior aspect of right ck7 ankle using chet wrap, Air Cast, applied by nurse. Examined by me, post splint application: neurovascular intact, 2+ distal pulses palpable, brisk capillary refill noted, Patient tolerated well. MDM: 20:01 traMADol 50 mg PO once ordered. ck7 20:02 Foot, Complete Ordered. EDMS 20:03 Ankle, Complete Ordered. EDMS 20:03 Tibia/Fibula Ordered. EDMS 20:03 Knee, Complete Ordered. EDMS 20:09 Acetaminophen Tablet 650 mg PO once ordered. ck7 20:42 Financial registration complete. gjb 21:12 Chet Wrap ordered. ck7 21:12 Apply Air Cast to Patient. ordered. ck7 21:12 Crutches ordered. ck7 21:46 [facility] Payment Agreement was scanned into [employer] and attached to record. b 08/18 11:14 T-Sheet-- Draft Copy was scanned into [employer] and attached to record. gb Administered Medications: 08/17 20:11 Drug: Acetaminophen 650 mg [acetaminophen 325 mg tablet (2 tabs)] Route: PO; kc3 21:29 Drug: traMADol 50 mg [tramadol 50 mg tablet (1 tabs)] Route: PO; kc3 21:36 Follow up: pt given medication to take at home per MATT Gardner Signatures: Dispatcher [employer] EDNE Fabiola Parish, Reg Reg Robson Mann RPA-C RPA-Cck7 Luiza Lopez RN RN ead Crane, Kelsi, RN RN kc3 Tiffani Storey The chart was reviewed and I authenticate all verbal orders and agree with the evaluation and treatment provided.Attachments: 21:46 [facility] Payment Agreement b 08/18 11:14 T-Sheet-- Draft Copy Chart Complete MTDD
== END 2016-08-17 21:36 | disposition home or self-care (01) ==
LOC: M ED 18:13
DX: S83.91XA Sprain of unspecified site of right knee, initial encounter (principal); S93.401A Sprain of unspecified ligament of right ankle, initial encounter; W19.XXXA Unspecified fall, initial encounter; Y92.9 Unspecified place or not applicable; Y93.9 Activity, unspecified; Y99.0 Civilian activity done for income or pay; J30.2 Other seasonal allergic rhinitis; Z72.0 Tobacco use

== ENCOUNTER 2018-11-17 21:04 | Emergency (ER) | payer OTHER ==
[~2018-11-17] VITALS: Ht 185.4 cm; Wt 81.9 kg
[2018-11-18 00:34] VITALS: BP 119/87
--- NOTE | 2018-11-18 00:53 | REP ---
Clinical: Right ankle pain. Technique: AP, lateral, bilateral oblique views. Findings: No acute fracture or dislocation. Skeletal structures and joint spaces are intact and normal. Ankle mortise appears stable. No subcutaneous emphysema or radiodense foreign body. Impression: Normal right ankle radiograph series. Electronically Signed by Yon Johnston MD 11/18/2018 12:45 A
== END 2018-11-18 01:26 | disposition home or self-care (01) ==
LOC: M ED 21:04
DX: M72.2 Plantar fascial fibromatosis (principal)

== ENCOUNTER 2019-03-14 17:22 | Emergency (ER) | payer OTHER ==
[~2019-03-14] VITALS: Ht 185.4 cm; Wt 81.8 kg
[2019-03-14] MEDS ORDERED: IBUPROFEN 600 MG TAB PO ONE (20:00)
[2019-03-14 20:06] VITALS: BP 125/71
== END 2019-03-14 20:14 | disposition home or self-care (01) ==
LOC: M ED 17:22
DX: M76.51 Patellar tendinitis, right knee (principal); M76.52 Patellar tendinitis, left knee; M25.571 Pain in right ankle and joints of right foot

== ENCOUNTER 2019-07-22 07:52 | Emergency (ER) | payer OTHER ==
[~2019-07-22] VITALS: Ht 185.4 cm; Wt 78.7 kg
[2019-07-22 07:52] VITALS: BP 127/84
[2019-07-22] MEDS ORDERED: LIDOCAINE 1% SDV 5 ML VIAL DILUENT ONE (08:15)
[2019-07-22] MEDS ORDERED: cefTRIAXone SOD 250 MG VIAL (J0696) IM ONE (08:15)
[2019-07-22] MEDS ORDERED: AZITHROMYCIN 250 MG TAB PO ONE (08:15)
[2019-07-22 10:05] LABS: CHLAMYDIA DNA AMPLIFICATION NEGATIVE (NEGATIVE); GC DNA AMPLIFICATION POSITIVE (NEGATIVE)
== END 2019-07-22 08:44 | disposition home or self-care (01) ==
LOC: M ED 07:52
DX: N50.89 Other specified disorders of the male genital organs (principal); Z20.2 Contact with and (suspected) exposure to infections with a predominantly sexual mode of transmission
CPT/HCPCS: 87661; 96372; 99282; J0696

== ENCOUNTER 2020-07-05 17:29 | Emergency (ER) | payer OTHER ==
[~2020-07-05] VITALS: Ht 185.4 cm; Wt 81.0 kg
[2020-07-05 17:30] VITALS: BP 134/89
== END 2020-07-05 18:20 | disposition home or self-care (01) ==
LOC: M ED 17:29
DX: U07.1 COVID-19 (principal)
CPT/HCPCS: 99282; U0003

== ENCOUNTER 2020-07-18 19:30 | Emergency (ER) | payer OTHER ==
[~2020-07-18] VITALS: Ht 185.4 cm; Wt 78.5 kg
[2020-07-18 19:30] VITALS: BP 134/83
== END 2020-07-18 22:37 | disposition home or self-care (01) ==
LOC: M ED 19:30
DX: Z11.59 Encounter for screening for other viral diseases (principal)
CPT/HCPCS: 99283; U0003

== ENCOUNTER 2020-11-04 19:55 | Emergency (ER) | payer OTHER ==
[~2020-11-04] VITALS: Ht 188 cm; Wt 78.3 kg
--- NOTE | 2020-11-04 21:38 | REPVR ---
PROCEDURE INFORMATION: Exam: XR Right Ankle Exam date and time: 11/04/2020 8:57 PM Age: 35 years old Clinical indication: Pain; Ankle; Right; Additional info: Pain/prior fx/ TECHNIQUE: Imaging protocol: XR Right ankle. Views: 3 or more views. COMPARISON: CR Ankle, complete 11/17/2018 10:52 PM FINDINGS: Bones/joints: Normal. Soft tissues: Normal. IMPRESSION: Negative right ankle. Electronically signed by: Eliot Calvo On 11/04/2020 21:37:38 PM
--- NOTE | 2020-11-04 22:56 | REPVR ---
PROCEDURE INFORMATION: Exam: XR Right Tibia and Fibula Exam date and time: 11/04/2020 10:50 PM Age: 35 years old Clinical indication: Pain; Ankle; Right; Additional info: Foot pain TECHNIQUE: Imaging protocol: XR Right tibia and fibula. Views: 2 views. COMPARISON: CR Tibia, Fibula lower leg 08/17/2016 8:36 PM FINDINGS: Bones/joints: Normal. No fracture. Soft tissues: Normal. IMPRESSION: Negative right tibia and fibula. Electronically signed by: Eliot Calvo On 11/04/2020 22:55:54 PM
--- NOTE | 2020-11-04 22:57 | REPVR ---
PROCEDURE INFORMATION: Exam: XR Right Foot Exam date and time: 11/04/2020 10:50 PM Age: 35 years old Clinical indication: Pain; Foot; Right; Additional info: Foot pain TECHNIQUE: Imaging protocol: XR Right foot. Views: 3 or more views. COMPARISON: CR Foot, complete 08/17/2016 8:36 PM FINDINGS: Bones/joints: Normal. No fracture. Soft tissues: Normal. IMPRESSION: Negative right foot. Electronically signed by: Eliot Calvo On 11/04/2020 22:57:20 PM
--- NOTE | 2020-11-05 00:04 | REPVR ---
PROCEDURE INFORMATION: Exam: CT Right Lower Extremity Without Contrast Exam date and time: 11/04/2020 11:21 PM Age: 35 years old Clinical indication: Pain; Lower leg; Right; Additional info: Leg pain TECHNIQUE: Imaging protocol: CT of the Right lower extremity without contrast was performed. Radiation optimization: All CT scans at this facility use at least one of these dose optimization techniques: automated exposure control; mA and/or kV adjustment per patient size (includes targeted exams where dose is matched to clinical indication); or iterative reconstruction. COMPARISON: CR Tibia, Fibula lower leg RIGHT 11/04/2020 10:31 PM FINDINGS: Bones/joints: No fractures are seen. Soft tissues: Slight subcutaneous edema anterior to the inferior patellar tendon. Slight subcutaneous edema along the dorsum of the foot. IMPRESSION: 1. Slight subcutaneous edema anterior to the inferior patellar tendon and along the dorsum of the foot. 2. Otherwise negative CT right lower extremity. No fracture is identified. Electronically signed by: Eliot Calvo On 11/05/2020 00:04:02 AM
--- NOTE | 2020-11-05 00:24 | REPVR ---
PROCEDURE INFORMATION: Exam: US Duplex Right Lower Extremity Veins, Limited Exam date and time: 11/04/2020 12:09 AM Age: 35 years old Clinical indication: Pain; Foot; Right; Additional info: Leg pain TECHNIQUE: Imaging protocol: Real-time Duplex ultrasound of the Right Lower Extremity with 2-D gupta scale, color Doppler flow and spectral waveform analysis with image documentation. Limited exam was focused on the right lower extremity veins. COMPARISON: CT-Tib/Fib WITHOUT CONTRAST RIGHT 11/04/2020 11:30 PM FINDINGS: Right deep veins: Unremarkable. The common femoral, femoral, proximal profunda femoral and popliteal veins are patent without thrombus. Normal Doppler waveforms. Normal compressibility and/or augmentation response. Right superficial veins: Unremarkable. Saphenofemoral junction is patent without thrombus. Soft tissues: Unremarkable. Lymph nodes: Small lymph nodes are present in the right inguinal region measuring up to 13 mm. IMPRESSION: Negative right lower extremity venous duplex exam without evidence of deep venous thrombosis. Electronically signed by: Eliot Calvo On 11/05/2020 00:23:46 AM
[2020-11-05 01:13] VITALS: BP 159/103
== END 2020-11-05 01:19 | disposition home or self-care (01) ==
LOC: M ED 19:55
DX: M79.604 Pain in right leg (principal)